=== PATIENT | male | born 1975 | race Caucasian/White ===

== ENCOUNTER 2016-05-22 23:43 | Emergency (ER) | payer OTHER ==
[~2016-05-22] VITALS: Ht 182.9 cm; Wt 95.0 kg
[2016-05-22 23:53] VITALS: Ht 182.9 cm; Wt 95.0 kg
[2016-05-22] MEDS ORDERED: SODIUM CHLORIDE 0.9% 1L BAG IV* STA (23:53)
[2016-05-22] MEDS ORDERED: CEFTRIAXONE 1 GM/50 ML (PMX) 50 ML IVPB STA (23:53)
[2016-05-23] MEDS ORDERED: ALBUTEROL 0.5% (NEB) 2.5 MG/0.5 ML AMP INH ONE
[2016-05-23 00:25] LABS: BASOPHIL # 0.1 10^3/ul (0.0-0.1); BASOPHILS % 0.6 % (0.0-2.0); EOSINOPHILS # 0.1 10^3/ul (0.0-0.5); EOSINOPHILS % 0.9 % (0.0-7.0); HEMATOCRIT 38.6 % (42.0-52.0); HEMOGLOBIN 13.2 g/dl (14.0-18.0); LYMPHOCYTES # 1.4 10^3/ul (0.8-2.9); LYMPHOCYTES % 16.6 % (15.0-51.0); MEAN CORPUSCULAR HEMOGLOBIN 29.7 pg (29.0-33.0); MEAN CORPUSCULAR HGB CONC 34.2 g/dl (32.0-37.0); MEAN CORPUSCULAR VOLUME 86.8 fl (82.0-101.0); MEAN PLATELET VOLUME 7.9 fl (7.4-10.4); MONOCYTE # 1.6 10^3/ul (0.3-0.9); MONOCYTES % 18.6 % (0.0-11.0); NEUTROPHIL # 5.5 10^3/ul (1.6-7.5); NEUTROPHILS % 63.3 % (39.0-77.0); PLATELET COUNT 269 10^3/UL (140-440); RED BLOOD COUNT 4.45 10^6/ul (4.70-6.10); RED CELL DISTRIBUTION WIDTH 13.4 % (11.5-14.5); UNCORRECTED WBC 8.7 10^3/ul (4.8-10.8); WHITE BLOOD COUNT 8.7 10^3/ul (4.8-10.8)
[2016-05-23 00:29] LABS: CONDITION 1; LH ANALYZER COMMENTS 1
[2016-05-23 00:35] LABS: ALBUMIN 3.8 g/dl (3.3-4.9)
[2016-05-23 00:36] LABS: POTASSIUM 3.8 mmol/L (3.5-5.1)
[2016-05-23 00:38] LABS: ALBUMIN/GLOBULIN RATIO 0.8; BILIRUBIN,INDIRECT 0.2 mg/dl (0-1.1); BILIRUBIN,TOTAL 0.2 mg/dl (0.2-1.3); CREATININE 0.71 mg/dl (0.61-1.24); TOTAL PROTEIN 8.5 g/dl (6.1-8.1)
[2016-05-23 00:39] LABS: CALCIUM 9.3 mg/dl (8.4-10.2)
--- NOTE | 2016-05-23 00:43 | RADRPT ---
PROCEDURE: XR Chest. CLINICAL INDICATION: SOB TECHNIQUE: Single frontal chest x-ray. COMPARISON: None. FINDINGS: Mild increased densities are seen in the lower lungs could be secondary to atelectasis, mild interst itial pulmonary edema or other infiltrates. The heart does not appear to be grossly enlarged. The patient is mildly rotated to the right.. IMPRESSION: Mild increased densities are seen in the lower lungs could be secondary to atelectasis, mild interst itial pulmonary edema or other infiltrates. RPTAT: HJES .Alec Cardenas MD, MD Date Time Electronically viewed and signed by .Alec Cardenas MD, MD on 05/23/2016 00:43 .S/
[2016-05-23] MEDS ORDERED: IOHEXOL 300MG/ML 150 ML BTL ONE (03:09)
[2016-05-23] MEDS ORDERED: SOD CHLORIDE 0.9% 100 ML ONE (03:09)
--- NOTE | 2016-05-23 04:06 | RADRPT ---
PROCEDURE: CT Chest with contrast. CLINICAL INDICATION: Cough. TECHNIQUE: CT scan of the chest was performed on a multi-detector high-resolution CT scanner. Co ntiguous axial images were obtained from the lung apices to the upper abdomen after the administrati on of 100 cc Omnipaque-300 intravenous contrast. Coronal and sagittal reformatted images were also obtained. Images were reviewed on the PACS workstation. One or more of the following dose reduction techniques were used: - Automated exposure control. - Adjustment of the mA and/or kV according to patient size. - Use of iterative reconstruction technique. Exam CTD/vol = 13.11 mGy. Total exam DLP = 526.46 mGy-cm. COMPARISON: None. FINDINGS: The visualized thyroid gland is unremarkable. There are no enlarged axillary lymph nodes. There ar e no enlarged mediastinal or hilar lymph nodes; however, study limited by lack of intravenous contra st. The heart and aorta are unremarkable. There is no pericardial thickening or effusion. There are mild scattered air space opacities within the left lower lobe. There is minimal bibasilar atelectasis. There is no pleural effusion. The central tracheobronchial tree is within normal aranda its. The osseous structures are unremarkable. Limited evaluation of the upper abdomen is unremarkable. IMPRESSION: Mild scattered air space opacities within the left lower lobe. Minimal bibasilar atelectasis. .Abhay Staples MD, MD Date Time Electronically viewed and signed by .Abhay Staples MD, MD on 05/23/2016 04:05 .T/
[2016-05-23] MEDS ORDERED: ALBU8.5H3 INH (04:21)
[2016-05-23] MEDS ORDERED: AZIT250T4 PO (04:21)
[2016-05-23 04:39] VITALS: BP 160/89; PULSE 91; RESP 19; TEMP 98.5
--- NOTE | 2016-05-23 05:13 | ERD ---
ER Documentation Chief Complaint Date/Time DATE: 05/23/16 TIME: 05:07 Chief Complaint cough x 2 wks, hx PNA w/ HIV HPI 41-year-old male with a history of HIV on medication and hepatitis C presenting with cough for 2 weeks. Last CD4 count was in the 400s. Patient was brought in by police after being arrested for medical clearance. Patient states that he has associated fevers and chills. The cough is dry, nonproductive, no associated chest pain. He has not seen a doctor for this cough. He denies any current antibiotics. He continues to use IV drugs. He has been taking his HIV medication regularly. ROS All systems reviewed and are negative except as per history of present illness. Medications Home Meds Active Scripts Albuterol Sulfate* (Proair HFA*) 8.5 Gm Hfa.aer.ad, 2 PUFF INH Q4H Y for WHEEZING AND SOB, #1 INHALER Prov:NARCISA LARSEN MD 05/23/16 Azithromycin* (Azithromycin*) 250 Mg Tablet, 250 MG PO DAILY, #6 TAB Take 2 tablets on day 1, then take one tablet daily on days 2-5 Prov:NARCISA LARSEN MD 05/23/16 PMhx/Soc Hx Miscellaneous Medical Probl: Yes (HIV, hepatitis C) Hx Alcohol Use: Yes Hx Substance Use: Yes Hx Tobacco Use: Yes Smoking Status: Unknown if ever smoked FmHx Family History: No diabetes Physical Exam Vitals Vital Signs Date Time Temp Pulse Resp B/P Pulse Ox O2 Delivery O2 Flow Rate FiO2 05/23/16 04:39 98.5 91 19 160/89 100 Room Air 05/23/16 00:47 80 20 100 Nasal Cannula 3.0 05/23/16 00:00 98.2 80 20 145/85 100 Nasal Cannula 2.0 05/23/16 00:00 Nasal Cannula 2 05/22/16 23:53 91 20 153/93 96 Physical Exam Const: Sickly appearing, nontoxic, no apparent distress Head: Atraumatic Eyes: Normal Conjunctiva, Perrl ENT: Normal External Ears, Nose and Mouth. Neck: Full range of motion.No meningismus. Resp: Diffuse expiratory wheezing, good air movement bilaterally, no crackles or rhonchi Cardio: Regular rate and rhythm, no murmurs Abd: Soft, non tender, non distended. Normal bowel sounds Skin: No petechiae or rashes Back: No midline or flank tenderness Ext: No cyanosis, or edema Neur: Awake and alert and oriented, normal gait, strength and sensations intact in all 4 extremities Psych: Normal Mood and Affect Result Diagram: 05/22/16 2355 05/22/16 2355 Results 24 hrs Laboratory Tests Test 05/22/16 23:55 Alanine Aminotransferase (ALT/SGPT) 40IU/L Albumin 3.8g/dl Albumin/Globulin Ratio 0.80 Alkaline Phosphatase 128IU/L Anion Gap 15 Aspartate Amino Transf (AST/SGOT) 50IU/L Basophils # 0.110^3/ul Basophils % 0.6% Blood Urea Nitrogen 11mg/dl Calcium Level 9.3mg/dl Carbon Dioxide Level 29mmol/L Chloride Level 103mmol/L Creatinine 0.71mg/dl Differential Comment AUTO w/SCAN Direct Bilirubin 0.00mg/dl Eosinophils # 0.110^3/ul Eosinophils % 0.9% Globulin 4.70g/dl Glucose Level 88mg/dl Hematocrit 38.6% Hemoglobin 13.2g/dl Indirect Bilirubin 0.2mg/dl Lactic Acid Level 0.9mmol/L Lymphocytes # 1.410^3/ul Lymphocytes % 16.6% Mean Corpuscular Hemoglobin 29.7pg Mean Corpuscular Hemoglobin Concent 34.2g/dl Mean Corpuscular Volume 86.8fl Mean Platelet Volume 7.9fl Monocytes # 1.610^3/ul Monocytes % 18.6% Neutrophils # 5.510^3/ul Neutrophils % 63.3% Nucleated Red Blood Cells # 0.010^3/ul Nucleated Red Blood Cells % 0.0/100WBC Platelet Count 92430^3/UL Potassium Level 3.8mmol/L Red Blood Count 4.4510^6/ul Red Cell Distribution Width 13.4% Sodium Level 143mmol/L Total Bilirubin 0.2mg/dl Total Protein 8.5g/dl White Blood Count 8.710^3/ul Current Medications Medications (Trade) Dose Ordered Sig/[place] Route PRN Reason Start Time Stop Time Status Last Admin Dose Admin Sodium Chloride (NS) 2,950 ml BOLUS OVER 2 HOURS STAT IV* 05/22/16 23:53 05/22/16 23:55 DC 05/23/16 00:16 Albuterol 5 mg 5 mg ONCE ONCE INH 05/23/16 00:00 05/23/16 00:01 DC 05/23/16 00:47 Ceftriaxone Sodium 50 ml @ 100 mls/hr ONCE STAT IVPB 05/22/16 23:53 05/23/16 00:22 DC 05/23/16 00:11 Sodium Chloride (NS) 100 ml @ ud STK-MED ONCE .ROUTE 05/23/16 03:09 05/23/16 03:10 DC 05/23/16 03:42 Iohexol (Omnipaque 300mg/ ml) 150 ml STK-MED ONCE .ROUTE 05/23/16 03:09 05/23/16 03:10 DC 05/23/16 03:42 Procedures/MDM Patient is presenting with symptoms of acute bronchitis. His vitals are stable and he is afebrile. Albuterol was given with symptomatic improvement. Chest x- ray showed a concerning finding in the left hilum. CT of the chest with IV contrast did not show any acute abnormalities other than atelectasis. There is no evidence of pneumonia. Labs were all unremarkable. I suspect the patient may have a bacterial bronchitis given the length of his symptoms. I will discharge him with azithromycin and albuterol. Patient was discharged to police and will be given his medications in senior living. He was stable upon discharge. Departure Diagnosis: Primary Impression: Acute bronchitis Bronchitis organism: unspecified organism Qualified Code: J20.9 - Acute bronchitis, unspecified organism Condition: Stable Patient Instructions: Bronchitis, Antiobiotic Treatment (Adult), Medical Screening Exam, Nonurgent Referrals: [facility] YOU HAVE RECEIVED A MEDICAL SCREENING EXAM AND THE RESULTS INDICATE THAT YOU DO NOT HAVE A CONDITION THAT REQUIRES URGENT TREATMENT IN THE EMERGENCY DEPARTMENT. FURTHER EVALUATION AND TREATMENT OF YOUR CONDITION CAN WAIT UNTIL YOU ARE SEEN IN YOUR DOCTORS OFFICE WITHIN THE NEXT 1-2 DAYS. IT IS YOUR RESPONSIBILITY TO MAKE AN APPOINTMENT FOR FOLOW-UP CARE. IF YOU HAVE A PRIMARY DOCTOR --you should call your primary doctor and schedule and appointment IF YOU DO NOT HAVE A PRIMARY DOCTOR YOU CAN CALL OUR PHYSICIAN REFERRAL HOTLINE AT . IF YOU CAN NOT AFFORD TO SEE A PHYSICIAN YOU CAN CHOSE FROM THE FOLLOWING [facility] [place] INSTITUTIONS: [facility] [address] [place] [address] [facility] [address] [place] [address] [facility] + [facility] [address] [place] [address] Additional Instructions: Patient medically clear for booking NARCISA LARSEN MD May 23, 2016 05:13
== END 2016-05-23 04:35 ==
LOC: E/R 23:43
DX: J20.9 Acute bronchitis, unspecified (principal); Z72.0 Tobacco use
CPT/HCPCS: 36415; 71010; 71260; 80053; 83605; 85025; 87040; 94664; 96374; 99285; J0696; J7030; Q9967